=== PATIENT | male | born 1955 | race Caucasian/White ===

== ENCOUNTER 2016-11-07 06:29 | Day surgery (SDC) | payer OTHER ==
[~2016-11-07] VITALS: Ht 188 cm; Wt 85.9 kg
[~2016-11-07 06:29] MED LIST: ASPI-860 PO; LACTATED RINGERS 1,000 ML IV SCH; MV-M1TAB21 PO; OMEP20TA PO; OMG1KC PO; SODIUM CHLORIDE FLUSH 3 ML SYR IV PRN; SUCR1TAB29 PO
[2016-11-07 06:43] VITALS: BP 116/71
[2016-11-07] MEDS ORDERED: LIDOCAINE PF 1% (XYLOCAINE) 2 ML VIAL INJ ONE (06:55)
[2016-11-07] MEDS ORDERED: PROPOFOL 20 ML IV ONE (07:17)
[2016-11-07] MEDS ORDERED: ALFENTANIL 500 MCG/ML (ALFENTA) 5 ML AMP IV ONE ×2 (07:17)
[2016-11-07] MEDS ORDERED: MIDAZOLAM 2 MG/2 ML (VERSED) VIAL ONE (07:17)
[2016-11-07 07:59] VITALS: BP 86/54
[2016-11-07 09:13] VITALS: BP 103/56
[2016-11-07 09:45] VITALS: BP 99/58
[2016-11-07 10:15] VITALS: BP 98/57
[2016-11-07 10:33] VITALS: BP 118/66
== END 2016-11-07 10:38 | disposition home or self-care (01) ==
LOC: ASC 06:29
PROVIDERS: ATTEND Surgery
DX: Z12.11 Encounter for screening for malignant neoplasm of colon (principal); D12.3 Benign neoplasm of transverse colon; K21.9 Gastro-esophageal reflux disease without esophagitis; Z79.82 Long term (current) use of aspirin
CPT/HCPCS: 45385; J2250; J7120